=== PATIENT | female | born 2000 | race Caucasian/White ===

== ENCOUNTER 2023-08-29 11:34 | Emergency (ER) | payer OTHER ==
[2023-08-29 12:05] LABS: BILIRUBIN,URINE NEGATIVE (NEGATIVE); GLUCOSE, URINE (UA) NEGATIVE (NEGATIVE); KETONES,URINE (UA) NEGATIVE (NEGATIVE); LEUKOCYTE ESTERASE, URINE NEGATIVE (NEGATIVE); NITRITE,URINE NEGATIVE (NEGATIVE); OCCULT BLOOD,URINE NEGATIVE (NEGATIVE); PH,URINE 6.5 PH (5.0-7.5); PROTEIN,URINE NEGATIVE (NEGATIVE); UROBILINOGEN,URINE 0.2 (NORMAL) E.U./dL (NORMAL)
[2023-08-29 12:07] LABS: BASOPHILS % (AUTO) 0.4 %; EOSINOPHILS # (AUTO) 0.1 10^3/uL (0.0-0.7); EOSINOPHILS % (AUTO) 0.9 %; HGB - HEMOGLOBIN 12.6 g/dL (12.0-16.0); LYMPHOCYTES # (AUTO) 2.2 10^3/uL (1.5-3.5); MEAN CORPUSCULAR HEMOGLOBIN 26.8 pg (27.0-31.0); MEAN CORPUSCULAR HGB CONC 31.5 g/dL (32.0-36.0); MEAN CORPUSCULAR VOLUME 85.1 fL (81.0-99.0); MEAN PLATELET VOLUME 8.8 fL (7.9-10.8); MONOCYTES # (AUTO) 0.5 10^3/uL (0.0-1.0); MONOCYTES % (AUTO) 8.8 %; NEUTROPHILS # (AUTO) 2.6 10^3/uL (1.5-6.6); NEUTROPHILS % (AUTO) 48.7 %; PLT - PLATELET COUNT 260 10^3/uL (130-450); RED CELL DISTRIBUTION WIDTH 13.5 % (12.0-15.0); WHITE BLOOD COUNT 5.3 x10^3/uL (4.8-10.8)
[2023-08-29 12:08] LABS: CLARITY,URINE CLEAR (CLEAR); HCG UR QUAL NEGATIVE
[2023-08-29 12:29] LABS: ALBUMIN 4.7 g/dL (3.2-5.5); ALBUMIN/GLOBULIN RATIO 2.1 (1.0-2.2); BILIRUBIN,TOTAL 0.8 mg/dL (0.2-1.0); CALCIUM 9.7 mg/dL (8.5-10.3); CREATININE 0.8 mg/dL (0.6-1.3); POTASSIUM 3.7 mmol/L (3.5-4.5); TOTAL PROTEIN 6.9 g/dL (6.4-8.9)
--- NOTE | 2023-08-29 13:15 | ED Physician Documentation ---
PD HPI FEMALE - Stated complaint Stated Complaint: ABD PX, - Chief complaint Chief Complaint: Abd Pain - Additional information Additional information: 23-year-old female presents emergency department with right lower quadrant pain. Patient says that she started noticing the symptoms about 2 to 3 days ago she is only noticing it when her bladder gets full when she is urinating on the right lower pelvic region. Patient noticed its become more painful with intercourse to the point where she feels like she is not able to anywhere. She originally went to urgent care they sent her here for concerns of possible appendicitis. She said no fevers or chills no pain at rest. PD PAST MEDICAL HISTORY - Past Medical History Past Medical History: Yes Respiratory: Asthma Other Past Medical History: Execerise induced asthma - Past Surgical History Past Surgical History: No - Present Medications Home Medications: Ambulatory Orders Medication Instructions Recorded Confirmed Albuterol Sulf [Ventolin Hfa 1 - 2 puffs INH PRN PRN 08/29/23 08/29/23 Inhaler] - Allergies Allergies/Adverse Reactions: Allergies Allergy/AdvReac Type Severity Reaction Status Date / Time No Known Drug Allergies Allergy Verified 08/29/23 11:46 - Social History Does the pt smoke?: No Smoking Status: Never smoker PD ED PE NORMAL - Vitals Vital signs reviewed: Yes - General General: Alert and oriented X 3, No acute distress, Well developed/nourished - HEENT HEENT: Atraumatic - Abdomen Abdomen: Normal bowel sounds, Soft, Non distended, No organomegaly, Other (Right lower quadrant pain with palpation) - Back Back: No CVA TTP - Psych Psych: Normal mood, Normal affect Results - Vitals Vitals: Vital Signs - 24 hr 08/29/23 08/29/23 08/29/23 11:40 11:56 12:30 Temperature 36.6 C Heart Rate 60 Respiratory 16 17 17 Rate Blood Pressure 112/79 O2 Saturation 100 08/29/23 13:28 Temperature Heart Rate 58 L Respiratory 17 Rate Blood Pressure 108/70 O2 Saturation 99 Oxygen O2 Source Room air - Labs Labs: Laboratory Tests 08/29/23 08/29/23 08/29/23 11:55 12:02 12:02 WBC 5.3 RBC 4.70 Hgb 12.6 Hct 40.0 MCV 85.1 MCH 26.8 L MCHC 31.5 L RDW 13.5 Plt Count 260 MPV 8.8 Neut # (Auto) 2.6 Lymph # (Auto) 2.2 [place] # (Auto) 0.5 Eos # (Auto) 0.1 Baso # (Auto) 0.0 Absolute Nucleated RBC 0.00 Nucleated RBC % 0.0 Sodium 137 Potassium 3.7 Chloride 103 Carbon Dioxide 30 Anion Gap 4.0 L BUN 14 Creatinine 0.8 Estimated GFR (MDRD) 88 L Glucose 92 Calcium 9.7 Total Bilirubin 0.8 AST 15 ALT 16 Alkaline Phosphatase 58 Total Protein 6.9 Albumin 4.7 Globulin 2.2 Albumin/Globulin Ratio 2.1 Lipase 19 Urine Color LIGHT YELLOW Urine Clarity CLEAR Urine pH 6.5 Ur Specific [place] <=1.005 Urine Protein NEGATIVE Urine Glucose (UA) NEGATIVE Urine Ketones NEGATIVE Urine Occult Blood NEGATIVE Urine Nitrite NEGATIVE Urine Bilirubin NEGATIVE Urine Urobilinogen 0.2 (NORMAL) Ur Leukocyte Esterase NEGATIVE Ur Microscopic Review NOT INDICATED Urine Culture Comments NOT INDICATED Urine HCG, Qual NEGATIVE - Rads (name of study) Pelvic, transvaginal ultrasound with Doppler Relevant Findings:: Final report received, EMP independent interpretation of test, Other (Right ovarian cyst measuring 4.4 x 4.2 cm) PD Medical Decision Making - ED course ED course: 23-year-old female presents emergency department for right lower quadrant pain. Limited transvaginal pelvic ultrasound complete which reveals a right ovarian cyst measuring 4.4 x 4.2 cm. Patient has been afebrile and had normal urinalysis acknowledge at urgent care which is why I did not do additional urine studies. Patient denies any dysuria or any CVA tenderness. I considered an appendicitis but given that patient appears very well overall and she is denying any abdominal pain at rest this is very low my differential. Patient told to have repeat ultrasound done in 3 to 6 months follow-up with primary care provider about today's findings and children alternate between Tylenol ibuprofen for any pain or discomfort that she is experiencing related to the cyst. All questions answered safe for discharge. Departure - Departure Disposition: 01 Home, Self Care Clinical Impression: Hemorrhagic cyst of ovary Condition: Good Instructions: Cysts Ovarian Comments: Thank you for trusting us with your care, we have evaluated you for right lower quadrant pain. We have completed an ultrasound and it reveals that you have a 4.5 cm hemorrhagic cyst on your right side. I would recommend repeating ultrasound in 3 to 6 months and following up with [employer] for further evaluation of this I have please come back to the emergency department if you start to have severe debilitating pain to the right lower quadrant, nausea vomiting fevers chills or any other concerning symptoms Forms: PCP List Discharge Date/Time: 08/29/23 13:44
[2023-08-29 13:29] VITALS: BP 108/70; O2SAT 99
--- NOTE | 2023-08-29 13:41 | Ultrasound Report ---
PROCEDURE: Pelvic w/Transvag+Doppler Ltd INDICATIONS: RLQ pain TECHNIQUE: Real-time scanning was performed of the pelvic organs, with image documentation. Additional endovagi nal scanning was necessary due to incomplete visualization of the adnexal and endometrial structures by transabdominal scanning. Doppler interrogation was performed of the ovaries bilaterally. COMPARISON: None. FINDINGS: Uterus: Uterus is anteverted and normal in size at 7.97 x 4.39 x 4.65 cm. The myometrium is homogen eous. The endometrium measures 12.49 mm in combined thickness. No gross endometrial mass or fluid i s seen. Ovaries: The right ovary measures 5.04 x 4.43 x 5.04 cm, with a calculated ovarian volume of 58.92 c c. The left ovary measures 3.19 x 1.92 x 2.10 cm, with a calculated ovarian volume of 6.73 cc. Appr opriate blood flow to the ovaries with Doppler interrogation. Less than 12 follicles can be seen in each ovary. No adnexal masses are seen. 4.4 x 3.7 x 4.2 cm heterogeneously hypoechoic structure is noted within right ovary with internal low-level echo. Other: Small amount of fluid fluid is noted adjacent to right ovary. IMPRESSION: 1. Possible hemorrhagic cyst involving right ovary measures 4.4 x 3.7 x 4.2 cm in size with small julee unt of adjacent right adnexal fluid. 2. Normal-appearing left ovary and uterus. No endometrial mass or fluid. Reviewed by: Jerry Herrera MD on 08/29/2023 1:40 PM PDT Approved by: Jerry Herrera MD on 08/29/2023 1:40 PM PDT Station ID: [id number]
== END 2023-08-29 13:44 | disposition home or self-care (01) ==
LOC: ED 11:34
DX: N83.201 Unspecified ovarian cyst, right side (principal)
CPT/HCPCS: 36415; 80053; 81001; 81003; 81025; 83690; 85025; 87086; 93976; 99283; 99284

== ENCOUNTER 2023-11-07 12:30 | Outpatient (CLI) | payer OTHER ==
[2023-11-07 21:43] LABS: BACTERIAL VAGINOSIS DNA NEGATIVE (NEGATIVE); CANDIDA GLABRATA DNA NEGATIVE (NEGATIVE); CANDIDA GROUP DNA NEGATIVE (NEGATIVE); CANDIDA KRUSEI DNA NEGATIVE (NEGATIVE); TRICHOMONAS VAGINALIS DNA NEGATIVE (NEGATIVE)
[2023-11-07 23:07] LABS: CHLAMYDIA TRACHOMATIS DNA NEGATIVE (NEGATIVE); NEISSERIA GONORRHOEAE DNA NEGATIVE (NEGATIVE)
[2023-11-08 03:11] LABS: HIV SCREEN 4TH GENERATION Non Reactive (Non Reactive)
[2023-11-08 07:10] LABS: RPR Non Reactive (Non Reactive)
== END 2023-11-07 14:16 | disposition home or self-care (01) ==
LOC: LAB.N 12:30
PROVIDERS: ATTEND Physician Assistant Medical
DX: Z11.3 Encounter for screening for infections with a predominantly sexual mode of transmission (principal); Z91.89 Other specified personal risk factors, not elsewhere classified
CPT/HCPCS: 36415; 81514; 81599; 86592; 86803; 87389; 87491; 87591; 87661

== ENCOUNTER 2023-12-11 08:15 | Outpatient (CLI) | payer OTHER ==
[2023-12-11 15:35] LABS: CHLAMYDIA TRACHOMATIS DNA NEGATIVE (NEGATIVE); NEISSERIA GONORRHOEAE DNA NEGATIVE (NEGATIVE)
[2023-12-11 18:38] LABS: BACTERIAL VAGINOSIS DNA NEGATIVE (NEGATIVE); CANDIDA GLABRATA DNA NEGATIVE (NEGATIVE); CANDIDA GROUP DNA NEGATIVE (NEGATIVE); CANDIDA KRUSEI DNA NEGATIVE (NEGATIVE); TRICHOMONAS VAGINALIS DNA NEGATIVE (NEGATIVE)
[2023-12-12 04:09] LABS: HIV SCREEN 4TH GENERATION Non Reactive (Non Reactive)
[2023-12-12 05:14] LABS: HSV 1 IGG TYPE SPEC <0.91 index (0.00-0.90); HSV 2 IGG TYPE SPEC <0.91 index (0.00-0.90); RPR Non Reactive (Non Reactive)
[2023-12-13 00:08] LABS: HCV AB Non Reactive (Non Reactive)
== END 2023-12-11 09:21 | disposition home or self-care (01) ==
LOC: LAB.N 08:15
PROVIDERS: ATTEND Physician Assistant Medical
DX: Z11.3 Encounter for screening for infections with a predominantly sexual mode of transmission (principal)
CPT/HCPCS: 36415; 81514; 86592; 86695; 86696; 86803; 87389; 87491; 87591; 87661

== ENCOUNTER 2023-12-26 08:00 | Outpatient (CLI) | payer OTHER ==
[2023-12-26 16:49] LABS: BACTERIAL VAGINOSIS DNA NEGATIVE (NEGATIVE); CANDIDA GLABRATA DNA NEGATIVE (NEGATIVE); CANDIDA GROUP DNA POSITIVE (NEGATIVE); CANDIDA KRUSEI DNA NEGATIVE (NEGATIVE); TRICHOMONAS VAGINALIS DNA NEGATIVE (NEGATIVE)
== END 2023-12-26 08:15 | disposition home or self-care (01) ==
LOC: LAB.N 08:00
PROVIDERS: ATTEND Physician Assistant Medical
DX: N89.8 Other specified noninflammatory disorders of vagina (principal)
CPT/HCPCS: 81514

== ENCOUNTER 2024-01-14 10:15 | Outpatient (CLI) | payer OTHER ==
[2024-01-14 22:23] LABS: CHLAMYDIA TRACHOMATIS DNA NEGATIVE (NEGATIVE); NEISSERIA GONORRHOEAE DNA NEGATIVE (NEGATIVE)
[2024-01-14 23:39] LABS: BACTERIAL VAGINOSIS DNA POSITIVE (NEGATIVE); CANDIDA GLABRATA DNA NEGATIVE (NEGATIVE); CANDIDA GROUP DNA POSITIVE (NEGATIVE); CANDIDA KRUSEI DNA NEGATIVE (NEGATIVE); TRICHOMONAS VAGINALIS DNA NEGATIVE (NEGATIVE)
== END 2024-01-14 10:30 | disposition home or self-care (01) ==
LOC: LAB.N 10:15
PROVIDERS: ATTEND Family Medicine
DX: R30.0 Dysuria (principal); N89.8 Other specified noninflammatory disorders of vagina
CPT/HCPCS: 81514; 87086; 87491; 87591; 87661

== ENCOUNTER 2024-01-30 13:30 | Outpatient (CLI) | payer OTHER ==
[2024-01-30 21:51] LABS: BACTERIAL VAGINOSIS DNA NEGATIVE (NEGATIVE); CANDIDA GLABRATA DNA NEGATIVE (NEGATIVE); CANDIDA GROUP DNA POSITIVE (NEGATIVE); CANDIDA KRUSEI DNA NEGATIVE (NEGATIVE); TRICHOMONAS VAGINALIS DNA NEGATIVE (NEGATIVE)
== END 2024-01-30 13:45 | disposition home or self-care (01) ==
LOC: LAB.N 13:30
PROVIDERS: ATTEND Physician Assistant
DX: N89.8 Other specified noninflammatory disorders of vagina (principal)
CPT/HCPCS: 81514